=== PATIENT | male | born 1970 | race Hispanic/Latino ===

== ENCOUNTER 2018-06-14 09:18 | Inpatient (IN) | payer BC ==
[~2018-06-14] VITALS: Ht 175.3 cm; Wt 123.8 kg
[2018-06-14] MEDS ORDERED: MAGNESIUM/ALUMINUM/SIMETHICONE 30 ML UDC PO STA (09:44)
[2018-06-14] MEDS ORDERED: PANTOPRAZOLE 40 MG 10ML VIAL IV STA (10:15)
--- NOTE | 2018-06-14 11:27 | Diagnostic Imaging Report ---
EXAMINATION: CXR 2 VIEW - HOPD INDICATION: Epigastric pain. Chest pain. COMPARISON: None FINDINGS: TUBES and LINES: None. LUNGS: Lungs are well inflated. Perihilar peribronchial hazy opacity could be due to bronchitis. There is no evidence of consolidated pneumonia or pulmonary edema. PLEURA: No pleural effusion or pneumothorax. HEART AND MEDIASTINUM: The cardiomediastinal silhouette is unremarkable. BONES AND SOFT TISSUES: No acute osseous lesion. Soft tissues are unremarkable. UPPER ABDOMEN: No free air under the diaphragm. IMPRESSION: Perihilar peribronchial hazy opacity could be due to bronchitis. Signed by: Dr. Austin Ch M.D. on 06/14/2018 11:24 AM
--- NOTE | 2018-06-14 12:43 | Diagnostic Imaging Report ---
EXAM: CT Abdomen and Pelvis WITH contrast INDICATION: Epigastric pain. COMPARISON: None. TECHNIQUE: Abdomen and pelvis were scanned utilizing a multidetector helical scanner from the lung base to the pubic symphysis after administration of IV contrast. Coronal and sagittal reformations were obtained. Routine protocol was performed. Scan was performed when during portal venous phase. IV CONTRAST: 100 mL of Isovue-370 ORAL CONTRAST: Water RADIATION DOSE: Total DLP: 878.97 mGy*cm Estimated effective dose: (DLP x 0.015 x size factor) mSv COMPLICATIONS: None FINDINGS: LINES and TUBES: None. LOWER THORAX: Mild scarring/atelectasis at the lung bases. HEPATOBILIARY: Fatty infiltration of the liver. Focal hypervascular lesion in the posterior inferior right hepatic lobe best seen on series 2 image 35 and 36. No biliary ductal dilation. GALLBLADDER: No radio-opaque stones or sludge. No wall thickening. SPLEEN: No splenomegaly. Small splenule. PANCREAS: No focal masses or ductal dilatation. ADRENALS: No adrenal nodules KIDNEYS/URETERS: Kidneys enhance symmetrically. No hydronephrosis. No cystic or solid mass lesions. Punctate nonobstructing right and left renal stones. GI TRACT: No abnormal distention, wall thickening, or evidence of bowel obstruction. Appendix is normal. PELVIC ORGANS/BLADDER: Unremarkable. LYMPH NODES: 2.0 cm hypodense jose hepatis region lymph node best seen on series 2 image 35. Small nonspecific inguinal lymph nodes. VESSELS: Unremarkable. PERITONEUM / RETROPERITONEUM: No free air or fluid. BONES: Unremarkable. SOFT TISSUES: 4.0 cm spiculated mass in the mesenteric fat best seen on series 2 image 49 and could be due to a carcinoid tumor. There is apparent retraction of the adjacent mesenteric vasculature. There are several adjacent small lymph nodes. Fat-containing right internal hernia. IMPRESSION: 1. 4.0 cm spiculated mass in the mesenteric fat to be due to a carcinoid tumor. There are several adjacent small lymph nodes, there is a 2.0 cm jose hepatus region lymph node and there is a small hypervascular lesion in the posterior inferior right hepatic lobe. GI/surgical consultation is recommended. 2. Punctate nonobstructing right and left renal stones. Signed by: Dr. Austin Ch M.D. on 06/14/2018 12:40 PM
[2018-06-14] MEDS ORDERED: MORPHINE SULFATE INJ 4 MG/ML INJ IV STA (13:02)
[2018-06-14] MEDS ORDERED: HYDROMORPHONE 1MG/1ML INJ IV PRN (13:15)
[2018-06-14] MEDS ORDERED: PANTOPRAZOLE INJ 40 MG in SODIUM CHLORIDE 0.9% 50ML 50 ML IV SCH (13:15)
--- OUTSIDE RECORDS SUMMARY | 2018-06-14 13:34 | XMS REPORT ---
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 Allergies, Adverse Reactions, Alerts This patient has no known allergies or adverse reactions. Medications This patient has no known medications. Results Test Description Test Time Test Comments Text Results Atomic Results Result Comments CT ABD/PEL WITH CONTRAST-HOPD 2018-06-14 12:29:00 [facility] [address] [address] Patient Name: YASMIN NAVARRO MR #: [id number] : 1970 Age/Sex: 47/M Req #: [id number] Adm Physician: Ordered by: HAZEL FREY MD Report #: [id number] Location: [facility] Room/Bed: Procedure: [id number] HOPD/CT ABD/PEL WITH CONTRAST-HOPD Exam Date: 06/14/18 Exam Time: 1040 REPORT STATUS: Signed EXAM: CT Abdomen and Pelvis WITH contrast INDICATION: Epigastric pain. COMPARISON: None. TECHNIQUE: Abdomen and pelvis were scanned utilizing a multidetector helical scanner from the lung base to the pubic symphysis after administration of IV contrast. Coronal and sagittal reformations were obtained. Routine protocol was performed. Scan was performed when during portal venous phase. IV CONTRAST: 100 mL of Isovue-370 ORAL CONTRAST: Water RADIATION DOSE: Total DLP: 878.97 mGy*cm Estimated effective dose: (DLP x 0.015 x size factor) mSv COMPLICATIONS: None FINDINGS: LINES and TUBES: None. LOWER THORAX: Mild scarring/atelectasis at the lung bases. HEPATOBILIARY: Fatty infiltration of the liver. Focal hypervascular lesion in the posterior inferior right hepatic lobe best seen on series 2 image 35 and 36. No biliary ductal dilation. GALLBLADDER: No radio-opaque stones or sludge. No wall thickening. SPLEEN: No splenomegaly. Small splenule. PANCREAS: No focal masses or ductal dilatation. ADRENALS: No adrenal nodules KIDNEYS/URETERS: Kidneys enhance symmetrically. No hydronephrosis. No cystic or solid mass lesions. Punctate nonobstructing right and left renal stones. GI TRACT: No abnormal distention, wall thickening, or evidence of bowel obstruction. Appendix is normal. PELVIC ORGANS/BLADDER: Unremarkable. LYMPH NODES: 2.0 cm hypodense jose hepatis region lymph node best seen on series 2 image 35. Small nonspecific inguinal lymph nodes. VESSELS: Unremarkable. PERITONEUM / RETROPERITONEUM: No free air or fluid. BONES: Unremarkable. SOFT TISSUES: 4.0 cm spiculated mass in the mesenteric fat best seen on series 2 image 49 and could be due to a carcinoid tumor. There is apparent retraction of the adjacent mesenteric vasculature. There are several adjacent small lymph nodes. Fat-containing right internal hernia. IMPRESSION: 1. 4.0 cm spiculated mass in the mesenteric fat to be due to a carcinoid tumor. There are several adjacent small lymph nodes, there is a 2.0 cm jose hepatus region lymph node and there is a small hypervascular lesion in the posterior inferior right hepatic lobe. GI/surgical consultation is recommended. 2. Punctate nonobstructing right and left renal stones. Signed by: Dr. Austin Ch M.D. on 06/14/2018 12:40 PM Dictated By: AUSTIN CH MD, MD 1240 Transcribed By: ROSALIE on 06/14/18 1240 COPY TO: HAZEL FREY MD CXR 2 [facility] 2018-06-14 11:23:00 [address] [address] Patient Name: YASMIN NAVARRO MR #: [id number] : 1970 Age/Sex: 47/M [facility] #: [id number] [facility] Physician: Ordered by: HAZEL FREY MD Report #: [id number] Location: [facility] Room/Bed: Procedure: [id number] HOPD/CXR 2 VIEW - HOPD Exam Date: 06/14/18 Exam Time: 1040 REPORT STATUS: Signed EXAMINATION: CXR 2 VIEW - HOPD INDICATION: Epigastric pain. Chest pain. COMPARISON: None FINDINGS: TUBES and LINES: None. LUNGS: Lungs are well inflated. Perihilar peribronchial hazy opacity could be due to bronchitis. There is no evidence of consolidated pneumonia or pulmonary edema. PLEURA: No pleural effusion or pneumothorax. HEART AND MEDIASTINUM: The cardiomediastinal silhouette is unremarkable. BONES AND SOFT TISSUES: No acute osseous lesion. Soft tissues are unremarkable. UPPER ABDOMEN: No free air under the diaphragm. IMPRESSION: Perihilar peribronchial hazy opacity could be due to bronchitis. Signed by: Dr. Austin Ch M.D. on 06/14/2018 11:24 AM Dictated By: AUSTIN CH MD, MD 1124 Transcribed By: ROSALIE on 06/14/18 1124 COPY TO: HAZEL FREY MD
[2018-06-14] MEDS ORDERED: PANTOPRAZOLE 40 MG 10ML VIAL ONE (17:37)
[2018-06-14] MEDS ORDERED: LABETALOL HCL 5 MG/ML 20ML VIAL IV PRN (17:45)
[2018-06-14] MEDS: PANTOPRAZOL 40MG/SOD CHL 0.9% 50 ML IV SCH ×2 (17:45→22:24)
[2018-06-14] MEDS: D5.45%NS/KCL 20MEQ 1,000 ML IV SCH ×2 (17:45→21:05)
[2018-06-14] MEDS: HYDROMORPHONE 2MG/ML 2 MG/ML ML IV PRN ×2 (17:50→21:50)
[2018-06-14 18:43] VITALS: BP 175/98
[2018-06-14] MEDS ORDERED: IOPAMIDOL 300MG/ML 100 ML INFUS..BTL IV ONE (18:45)
[2018-06-14 20:00] VITALS: BP 136/75
[2018-06-15] VITALS (7 sets, daily range): BP systolic 99–147; BP diastolic 50–81
[2018-06-15] MEDS: HYDROMORPHONE 2MG/ML 2 MG/ML ML IV PRN ×6 (01:20→22:11)
[2018-06-15] MEDS: D5.45%NS/KCL 20MEQ 1,000 ML IV SCH (01:20)
[2018-06-15] MEDS: PANTOPRAZOL 40MG/SOD CHL 0.9% 50 ML IV SCH ×5 (03:15→22:11)
[2018-06-15 05:50] LABS: BASOPHILS % 0.3 % (0.0-1.0); EOSINOPHILS # (AUTO) 0.1 (0.0-0.4); EOSINOPHILS % 0.9 % (0.0-6.0); HEMOGLOBIN 13.9 g/dL (14.0-18.0); LYMPHOCYTES # (AUTO) 1.5 (1.0-3.2); LYMPHOCYTES % 16.6 % (18.0-39.1); MEAN CORPUSCULAR HEMOGLOBIN 28.2 pg (28-32); MEAN CORPUSCULAR HGB CONC 33.1 g/dL (31-35); MEAN CORPUSCULAR VOLUME 85.2 fL (81-99); MONOCYTES # (AUTO) 0.8 (0.2-0.8); MONOCYTES % 8.3 % (4.4-11.3); NEUTROPHILS # (AUTO) 6.6 (2.1-6.9); NEUTROPHILS % 73.7 % (38.7-80.0); PLATELET COUNT 339 x10e3/uL (140-360); RED BLOOD COUNT 4.93 x10e6/uL (4.3-5.7); RED CELL DISTRIBUTION WIDTH 12.4 % (11.7-14.4)
[2018-06-15 06:19] LABS: ALANINE AMINOTRANSFERASE 22 IU/L (0-55); ALBUMIN 3.6 g/dL (3.5-5.0); ALKALINE PHOSPHATASE 70 IU/L (40-150); AMYLASE 57 U/L (25-125); ANION GAP 14.9 mmol/L (8-16); BLOOD UREA NITROGEN 11 mg/dL (7-26); BUN/CREATININE RATIO 12 (6-25); CALCIUM 9.1 mg/dL (8.4-10.2); CARBON DIOXIDE 23 mmol/L (22-29); CHLORIDE 98 mmol/L (98-107); CREATININE, SERUM 0.89 mg/dL (0.72-1.25); EST GLOMERULAR FILTRATION RATE > 60 ML/MIN (60-); GLUCOSE 116 mg/dL (74-118); LIPASE 19 U/L (8-78); POTASSIUM 3.9 mmol/L (3.5-5.1); SODIUM 132 mmol/L (136-145)
[2018-06-15 07:01] LABS: CHOL/HDL RATIO 4.6 (3.9-4.7)
[2018-06-15] MEDS: ONDANSETRON HCL INJ 2 MG/ML VIAL IV PRN (07:10)
[2018-06-15 07:21] LABS: THYROID STIMULATING HORMONE 1.412 uIU/mL (0.350-4.940)
[2018-06-15] MEDS: SODIUM CHLORIDE 0.9% 1000ML 1,000 ML IV SCH (08:55)
--- NOTE | 2018-06-15 09:23 | History and Physical ---
PRIMARY CARE PHYSICIAN: None. CHIEF COMPLAINT: Epigastric pain. HISTORY OF PRESENT ILLNESS: This is a 47-year-old man with history of obesity, now developing epigastric pain. He says the pain has been ongoing for about 3 days. On further discussion, he has had intermittent pain from time to time in the past. The pain is described as 10/10, epigastric pain. He went to [facility] facility and was sent here for further management after imaging showed a mesenteric mass suggestive of a carcinoid tumor. The patient has also been having hot flashes and night sweats. He has had intermittent diarrhea. PAST MEDICAL HISTORY: Severe obesity. PAST SURGICAL HISTORY: Sinus related. ALLERGIES: PER ELECTRONIC MEDICAL RECORD. FAMILY HISTORY AND SOCIAL HISTORY: The patient is and has 3 children. Occasional alcohol. No cigarettes. 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 MEDICATIONS: Per electronic medical record. REVIEW OF SYSTEMS: Denies any dizziness. Denies any headache or vision changes. Denies any back pain, chest pain, shortness of breath. Denies any leg pain. PHYSICAL EXAMINATION VITAL SIGNS: Reviewed. GENERAL: A tired-appearing man resting in bed. HEENT: Anicteric. CARDIOVASCULAR: Normal S1 and S2. LUNGS: Moderate breath sounds. ABDOMEN: Soft, nondistended. Mild tenderness in the epigastrium. EXTREMITIES: No edema. SKIN: Dry. PSYCHIATRIC: Flat affect. NEUROLOGIC: Alert, oriented times 3, moving all extremities. LABS: Reviewed. MEDICATIONS: Reviewed. ASSESSMENT: A 47-year-old man. 1. Abdominal mass, possibly carcinoid tumor. 2. Abdominal lymphadenopathy. 3. Nephrolithiasis, bilateral. 4. Severe obesity. PLAN 1. GI consultation for endoscopy. 2. Oncology consultation. 3. Obtain hemoglobin A1c and lipid panel. 4. Obtain TSH. 5. Keep patient n.p.o. at this time. 6. Provide hydration. 7. Use SCDs for DVT prophylaxis. 8. Disposition: Follow up recommendations. Job#: [id number]
--- NOTE | 2018-06-15 22:17 | Consultation ---
DATE OF CONSULTATION: June 15, 2018 CHIEF COMPLAINT: Abdominal pain. HISTORY OF PRESENT ILLNESS: Patient is a 47-year-old male with 3-day history of epigastric abdominal pain radiating to the back with nausea. No vomiting. The patient was in relatively good health until this occurrence. He denied fever or chills but admitted to night sweats and intermittent diarrhea. PAST MEDICAL HISTORY: Positive for moderate obesity. SURGICAL HISTORY: Positive for sinus surgery. SOCIAL HABITS: Drinks socially. No smoking. DRUG ALLERGIES: NONE. REVIEW OF SYSTEMS: No chest pain or shortness of breath. PHYSICAL EXAMINATION VITALS: Stable. He is afebrile. GENERAL: Patient is awake, alert, in no apparent distress. HEENT: Sclerae anicteric. NECK: Supple. LUNGS: Clear. HEART: Regular rate and rhythm. ABDOMEN: Soft and nontender. No mass palpable. EXTREMITIES: Without cyanosis or edema. LABS: White cell count is 9, hemoglobin of 14, and platelet count 339,000. Creatinine 0.9. Glucose 221. Amylase 57. CT of the abdomen shows 4 cm spiculated mass in the mesenteric fat suggestive of carcinoid tumor. ASSESSMENT: Abdominal pain which is suspicious for carcinoid tumor in the mesenteric fat. PLAN: GI evaluation in progress. We will follow patient and plan surgical intervention accordingly. Job#: [id number]
[2018-06-16] VITALS (8 sets, daily range): BP systolic 115–137; BP diastolic 54–86
[2018-06-16] MEDS: HYDROMORPHONE 2MG/ML 2 MG/ML ML IV PRN ×6 (01:47→22:15)
[2018-06-16] MEDS: PANTOPRAZOL 40MG/SOD CHL 0.9% 50 ML IV SCH ×4 (03:15→23:55)
[2018-06-16] MEDS ORDERED: LIDOCAINE HCL 2% LOCAL 20 ML VIAL INJ ONE (08:00)
[2018-06-16] MEDS: SODIUM CHLORIDE 0.9% 1000ML 1,000 ML IV SCH (08:40)
--- NOTE | 2018-06-16 14:23 | Operative Report ---
DATE OF PROCEDURE: June 16, 2018 REFERRING PHYSICIAN: Dr. Sb Blandon. PROCEDURE PERFORMED: Esophagogastroduodenoscopy with biopsies. INDICATIONS FOR ESOPHAGOGASTRODUODENOSCOPY: Upper abdominal pain. MEDICATION: Patient was done under MAC. Please see anesthesiologist's note. PROCEDURE: With the patient in the left lateral decubitus position, the flexible fiberoptic Olympus gastroscope was introduced into the esophagus under direct visualization without any difficulty. There was some patchy erythema noted in the distal esophagus. Also, there were ?grade 1 esophageal varices versus prominent esophageal veins. The scope was then advanced with ease into the stomach, traversing a small sliding hiatal hernia. Mucosa overlying the antrum and the body revealed some diffuse erythema and moderate edema, and biopsies were obtained and sent to stain for H. pylori. The pylorus was of normal contour and shape, was intubated with ease, and the scope was advanced all the way to the 2nd portion of the duodenum. The scope was then withdrawn slowly. Mucosa overlying the proximal 2nd portion and the duodenal bulb appeared to be within normal limits. The scope was then withdrawn back into the stomach and retroflexed, and the mucosa overlying the fundus and the cardia appeared to be within normal limits. The scope was then straightened out. It was subsequently withdrawn. Patient tolerated procedure well. IMPRESSION: 1. Distal esophagitis. 2. ?Grade 1 esophageal varices. 3. Small sliding hiatal hernia. 4. Gastritis. PLAN: Follow up histology. Continue PPI therapy. Job#: [id number] EV cc:MD ISSAC CUELLO MD DAVID LAM, MD
[2018-06-16] MEDS ORDERED: MIDAZOLAM HCL 2 MG/2 ML VIAL ONE (15:25)
[2018-06-16] MEDS ORDERED: FENTANYL CITRATE/PF 100MCG/2 ML INJ ONE (15:25)
[2018-06-17] VITALS (7 sets, daily range): BP systolic 122–152; BP diastolic 61–80
[2018-06-17] MEDS: HYDROMORPHONE 2MG/ML 2 MG/ML ML IV PRN ×5 (02:28→20:56)
[2018-06-17] MEDS: PANTOPRAZOL 40MG/SOD CHL 0.9% 50 ML IV SCH ×4 (04:57→20:09)
--- NOTE | 2018-06-17 09:44 | Consultation ---
DATE OF CONSULTATION: June 15, 2018 Walter Glaser is a 47-year-old male who is referred to me for evaluation of an abdominal mass. The patient had presented with pain. SOCIAL HISTORY: Noncontributory. FAMILY HISTORY: Noncontributory. ALLERGIES: REPORTED NONE. MEDICATIONS: At this time: 1. Hydromorphone. 2. Trandate. 3. Zofran. 4. Normal saline. 5. Protonix. REVIEW OF SYSTEMS HEENT: Normal. CARDIAC: Normal. RESPIRATORY: Normal. GI: Abdominal pain. : Normal. MUSCULOSKELETAL: Normal. SKIN AND BREASTS: Normal. NEUROENDOCRINE: Essentially normal. PHYSICAL EXAMINATION GENERAL: A large-built male distressed with abdominal pain. Some times has flushing. HEART: Within normal limits. LUNGS: Clear. ABDOMEN: Soft. RECTAL: Deferred. CENTRAL NERVOUS SYSTEM: Essentially normal. EXTREMITIES: Essentially normal. LABS: Shows a hemoglobin of 13.9, hematocrit 42, white count 8900, and platelets are reported a 339,000. Chemistry shows a sodium of 132, potassium 3.9, chloride 98, CO2 23, BUN 11, creatinine 0.8, glucose 116. Calcium 9.1. Bilirubin 0.5, SGOT 16, SGPT 22, alkaline phosphatase 70. Total protein 7.1. Albumin 3.6. Globulins 3.5. Amylase and lipase are normal at 57 and 19. Triglycerides high at 221. IMAGING: Shows a chest x-ray that showed perihilar peribronchial opacity. Dr. Austin Ch suggested this could be bronchitis. However, the patient has no symptoms. CT scan of the abdomen showed mild scarring atelectasis of the lung bases. Fatty infiltration of the liver, focal hypervascular lesion in the posterior and inferior right hepatic lobe. There was a 4-cm mass in the mesenteric fat and a few regional lymph nodes especially in the jose hepatis, 2 cm. Punctate nonobstructing right and left renal stones. IMPRESSION: Abdominal mass with regional adenopathy. PLAN, COMMENTS AND SUGGESTIONS: Suggest surgical consultation for laparotomy since the radiologist has called it possible carcinoid. A 24-hour urine for 5-HIAA is suggested. A word of caution for Dr. Day, and this I have communicated with Dr. Sb Blandon. I will communicate with Dr. Day, who has been consulted as the surgeon, that at times if this proves to be carcinoid while handling, it could squeeze out serotonins, which could cause hypotension. However, hypotension should not be treated with the vasopressin as this will increase the production and release of more serotonins, which will cause more hypertension with Vasoxyl. This is not available at this time. This was the only drug which could have been used. Resuscitation with fluids at the time is suggested. I will communicate this with Dr. Day as I did not know which surgeon was consulted. Now, since I know, I will communicate with Dr. Day again. The final treatment will depend on what the pathology will come out to be. Job#: [id number] RI cc:MD EVELINA REED MD CLEVE O. JAMES, MD
[2018-06-17] MEDS ORDERED: PROPOFOL IV EMULSION 10 MG/ML 20 ML VIAL IV ONE (12:19)
[2018-06-17] MEDS: SODIUM CHLORIDE 0.9% 1000ML 1,000 ML IV SCH (12:20)
[2018-06-17] MEDS: OCTREOTIDE ACETATE 500 MCG in SODIUM CHLORIDE 0.9% 250ML 249 ML IV SCH (13:00)
[2018-06-17] MEDS: ONDANSETRON HCL INJ 2 MG/ML VIAL IV PRN (20:56)
[2018-06-18] VITALS: BP 134/63
[2018-06-18 01:14] VITALS: BP 125/70
[2018-06-18] MEDS: HYDROMORPHONE 2MG/ML 2 MG/ML ML IV PRN ×2 (01:15→09:30)
[2018-06-18] MEDS: ONDANSETRON HCL INJ 2 MG/ML VIAL IV PRN (01:15)
[2018-06-18] MEDS: OCTREOTIDE ACETATE 500 MCG in SODIUM CHLORIDE 0.9% 250ML 249 ML IV SCH (01:30)
[2018-06-18] MEDS: PANTOPRAZOL 40MG/SOD CHL 0.9% 50 ML IV SCH (01:45)
[2018-06-18 04:00] VITALS: BP 128/77
[2018-06-18 08:15] VITALS: BP 109/56
[2018-06-18] MEDS ORDERED: PANTOPRAZOLE SO40 MG PO (09:02)
[2018-06-18 09:30] VITALS: BP 109/56
== END 2018-06-18 11:10 | disposition home or self-care (01) | DRG 375 ==
LOC: FSED 09:18 → ERHOLD 13:08 → MED/SURG3 16:28
PROVIDERS: ADMIT Internal Medicine; ATTEND Internal Medicine
PROC: 0DB78ZX Excision of Stomach, Pylorus, Via Natural or Artificial Opening Endoscopic, Diagnostic (ICD-10-PCS; principal; 2018-06-16 13:01)
DX: C7B.04 Secondary carcinoid tumors of peritoneum (principal); C7A.00 Malignant carcinoid tumor of unspecified site; Z68.41 Body mass index [BMI] 40.0-44.9, adult; I85.10 Secondary esophageal varices without bleeding; E66.9 Obesity, unspecified; K20.9 Esophagitis, unspecified; K44.9 Diaphragmatic hernia without obstruction or gangrene; K70.0 Alcoholic fatty liver; K29.70 Gastritis, unspecified, without bleeding; R59.0 Localized enlarged lymph nodes; N20.0 Calculus of kidney
CPT/HCPCS: 36415; 43239; 71046; 74177; 80048; 80053; 80061; 80076; 80307; 81003; 82150; 82553; 83036; 83497; 83690; 84443; 84484; 85025; 85379; 85610; 88305; 88312; 93005; 99284; J1170; J2001; J2250; J2270; J2353; J2405; J7030; J7050; Q9967

== ENCOUNTER 2018-08-19 08:23 | Emergency (ER) | payer BC ==
[~2018-08-19] VITALS: Ht 175.3 cm; Wt 123.8 kg
[~2018-08-19 08:23] MED LIST: PANTOPRAZOLE SO40 MG PO
[2018-08-19] MEDS ORDERED: KETOROLAC TROMETHAMINE 30 MG/ML VIAL IV STA (08:42)
[2018-08-19] MEDS ORDERED: SODIUM CHLORIDE 0.9% 1000ML 1,000 ML IV SCH (08:45)
--- NOTE | 2018-08-19 09:33 | Diagnostic Imaging Report ---
EXAMINATION: CT of the abdomen and pelvis without contrast. TECHNIQUE: Spiral CT images of the abdomen and pelvis were performed from the lung bases to the lesser trochanters. No intravenous contrast was given per physician's request. Coronal and sagittal reformatted images were obtained. COMPARISON: CT abdomen and pelvis with contrast 06/14/2018 CLINICAL HISTORY:Epigastric pain since yesterday DISCUSSION: ABSENCE OF INTRAVENOUS CONTRAST DECREASES SENSITIVITY FOR DETECTION OF FOCAL LESIONS AND VASCULAR PATHOLOGY. ABDOMEN/PELVIS: LOWER THORAX: Unremarkable. HEPATOBILIARY: The liver is enlarged, measuring 17.3 cm in the right mid clavicular line. Normal contour. Diffuse severe fatty infiltration. A 1.1 cm oval-shaped rounded lesion in hepatic segment V has increased attenuation compared to the rest of the hepatic parenchyma and corresponds to the previously described hypervascular lesion (series 3, image 73). No intra or extrahepatic biliary ductal dilation. GALLBLADDER: No radio-opaque stones or sludge. No wall thickening. SPLEEN: No splenomegaly. PANCREAS: No focal masses or ductal dilatation. No peripancreatic fat stranding, inflammatory changes, free fluid or fluid collections.. ADRENALS: No adrenal nodules. KIDNEYS/URETERS: Mild right hydronephrosis and hydroureter. There is a 4 mm calculus in the bladder lumen just past the right UVJ (series 3, image 176). Punctate nonobstructing calculi in the right mid to inferior aspect (series 3, image 95). Punctate nonobstructing calculus in the left inferior pole (series 3, image 91). No other renal or ureteral calculi. No left hydronephrosis or obstruction. No renal contour abnormalities. PELVIC ORGANS/BLADDER: Bladder is decompressed. There is mild to moderate circumferential bladder wall thickening, which is greater than expected for underdistention. Prostate is unremarkable. PERITONEUM/RETROPERITONEUM: No free air or fluid. Stable 2.6 x 2.0 x 2.6 cm soft tissue density centered in the mesentery (series 3, image 112). LYMPH NODES: Stable mildly enlarged portacaval node (series 3, image 68) which measures 1.2 cm in short axis. Enlarged anterior caval node which measures 1.2 cm in short axis (series 3, image 75). No other intra-abdominal or retroperitoneal, pelvic or inguinal adenopathy. VESSELS: Unremarkable for noncontrast exam. GI TRACT: No bowel dilation or evidence of obstruction. No pericolonic inflammatory changes. Appendix is well identified and normal in caliber. BONES AND SOFT TISSUES: No aggressive lytic lesions. Mild degenerative disc changes in the lower thoracic and lumbosacral spine. Moderate fat-containing right inguinal hernia. IMPRESSION: 1. Exam limited by lack of intravenous contrast. 2. 4 mm calculus in the bladder lumen just past the right UVJ, likely recently passed. There is mild right hydronephrosis and hydroureter. No ureteral calculi are noted. 3. Bilateral nonobstructing calculi, as described. 4. Stable 2.6 cm soft tissue density centered in the mesentery, with some retraction of the adjacent vessels. Differential diagnosis includes small carcinoid tumor, desmoid tumor or conglomerate adenopathy. 5. A 1.1 cm oval-shaped rounded lesion in hepatic segment V probably represents nonfatty infiltrated hepatic parenchyma rather than a true hypervascular lesion. Further evaluation with contrast enhanced abdominal MRI with liver mass protocol is recommended. 6. Portacaval and anterior caval adenopathy. 7. Mild to moderate circumferential bladder wall thickening, greater than expected for underdistention. Correlate for cystitis. 8. Hepatomegaly with diffuse severe steatosis. Signed by: Dr. Brian Horn M.D. on 08/19/2018 9:29 AM
[2018-08-19] MEDS ORDERED: MORPHINE SULFATE 2 MG/ML SYR IV STA ×2 (10:03→10:38)
[2018-08-19] MEDS ORDERED: MORPHINE SULFATE INJ 4 MG/ML INJ IV NR (10:15)
[2018-08-19] MEDS ORDERED: FLOMAX0.4 MG PO (10:59)
[2018-08-19] MEDS ORDERED: KETOROLAC TROME10 MG PO (10:59)
[2018-08-19 11:17] VITALS: BP 143/95
== END 2018-08-19 11:17 | disposition home or self-care (01) ==
LOC: FSED 08:23
DX: R10.31 Right lower quadrant pain (principal); N20.1 Calculus of ureter; Z85.028 Personal history of other malignant neoplasm of stomach
CPT/HCPCS: 74176; 80048; 80076; 81003; 85025; 99284; J1885; J2270; J7030

== ENCOUNTER 2021-04-29 17:42 | Inpatient (IN) | payer BC, OTHER ==
[~2021-04-29] VITALS: Ht 175.3 cm; Wt 85.3 kg
[~2021-04-29 17:42] MED LIST changes: +FLOMAX0.4 MG PO; +KETOROLAC TROME10 MG PO
[2021-04-29 18:10] LABS: BASOPHILS % 0.3 % (0.0-1.0); EOSINOPHILS # (AUTO) 0.1 (0.0-0.4); EOSINOPHILS % 1.9 % (0.0-6.0); HEMOGLOBIN 12.2 g/dL (14.0-18.0); LYMPHOCYTES # (AUTO) 0.4 (1.0-3.2); LYMPHOCYTES % 10.6 % (18.0-39.1); MEAN CORPUSCULAR HEMOGLOBIN 30.4 pg (28-32); MEAN CORPUSCULAR HGB CONC 33.9 g/dL (31-35); MEAN CORPUSCULAR VOLUME 89.8 fL (81-99); MONOCYTES # (AUTO) 0.4 (0.2-0.8); MONOCYTES % 11.1 % (4.4-11.3); NEUTROPHILS # (AUTO) 2.7 (2.1-6.9); NEUTROPHILS % 75.8 % (38.7-80.0); PLATELET COUNT 259 x10e3/uL (140-360); RED BLOOD COUNT 4.01 x10e6/uL (4.3-5.7); RED CELL DISTRIBUTION WIDTH 13.5 % (11.7-14.4)
[2021-04-29 18:27] LABS: ALANINE AMINOTRANSFERASE 133 IU/L (0-55); ALBUMIN 2.8 g/dL (3.5-5.0); ALKALINE PHOSPHATASE 139 IU/L (40-150); ANION GAP 11.7 mmol/L (8-16); BLOOD UREA NITROGEN 15 mg/dL (7-26); BUN/CREATININE RATIO 18 (6-25); CALCIUM 7.5 mg/dL (8.4-10.2); CARBON DIOXIDE 19 mmol/L (22-29); CHLORIDE 115 mmol/L (98-107); CREATINE KINASE 198 IU/L (30-200); CREATININE, SERUM 0.85 mg/dL (0.72-1.25); EST GLOMERULAR FILTRATION RATE 95 ML/MIN (60-); GLUCOSE 160 mg/dL (74-118); POTASSIUM 3.7 mmol/L (3.5-5.1); SODIUM 142 mmol/L (136-145)
[2021-04-29 18:42] LABS: AMYLASE 66 U/L (25-125); LIPASE 16 U/L (8-78)
[2021-04-29] MEDS ORDERED: IOPAMIDOL 370 MG/ML 200 ML INFUS..BTL INJ ONE (19:41)
[2021-04-29] MEDS ORDERED: SODIUM CHLORIDE 0.9% 100 ML ONE (19:41)
[2021-04-29] MEDS ORDERED: ONDANSETRON HCL INJ 2MG/ML 2ML 2 MG/ML VIAL IV STA (20:08)
[2021-04-29] MEDS ORDERED: MORPHINE SULFATE INJ 4 MG/ML INJ 1ML IV STA (20:12)
[2021-04-29] MEDS ORDERED: HYDROMORPHONE 1MG/1ML INJ IV STA (21:55)
[2021-04-29] MEDS: METRONIDAZOLE 500MG/NS 100ML 100 ML IV SCH (22:26)
[2021-04-29] MEDS: CEFOXITIN 1GM/0.9% NS 50ML 50 ML IV SCH (22:26)
[2021-04-29] MEDS: SODIUM CHLORIDE 0.9% 1000ML 1,000 ML IV SCH (22:26)
[2021-04-29] MEDS ORDERED: AMLODIPINE BESYLATE 5 MG TAB PO ONE (23:45)
[2021-04-29] MEDS: SENNA-S TABLET PO SCH (23:45)
[2021-04-29] MEDS: TAMSULOSIN HCL 0.4 MG CAP PO SCH (23:45)
[2021-04-29] MEDS ORDERED: HYDRALAZINE HCL 20 MG/ML VIAL IV PRN (23:45)
[2021-04-30] MEDS: HYDROMORPHONE 1MG/1ML INJ IV PRN ×4 (01:15→22:20)
[2021-04-30] MEDS: METRONIDAZOLE 500MG/NS 100ML 100 ML IV SCH ×4 (04:00→21:21)
[2021-04-30] MEDS: CEFOXITIN 1GM/0.9% NS 50ML 50 ML IV SCH ×3 (06:00→21:22)
[2021-04-30 06:30] LABS: ALBUMIN 2.7 g/dL (3.5-5.0); ANION GAP 9.1 mmol/L (8-16); CALCIUM 7.6 mg/dL (8.4-10.2); CREATININE, SERUM 0.75 mg/dL (0.72-1.25); POTASSIUM 3.1 mmol/L (3.5-5.1)
[2021-04-30] MEDS: SODIUM CHLORIDE 0.9% 1000ML 1,000 ML IV SCH ×3 (07:43→21:22)
[2021-04-30] MEDS: AMLODIPINE BESYLATE 5 MG TAB PO SCH (09:00)
[2021-04-30] MEDS: SENNA-S TABLET PO SCH ×2 (09:00→16:32)
[2021-04-30] MEDS ORDERED: POTASSIUM CHLORIDE 10MEQ EA PO ONE (09:30)
[2021-04-30] MEDS: TAMSULOSIN HCL 0.4 MG CAP PO SCH ×2 (10:43→16:32)
[2021-04-30 13:30] VITALS: BP 104/68
[2021-04-30 13:31] VITALS: BP 104/68
[2021-04-30 13:32] VITALS: BP 104/68
[2021-04-30] MEDS: HYDROCODONE/APAP 10MG-325MG TAB PO PRN ×2 (15:12→21:16)
[2021-04-30 15:27] VITALS: BP 101/65
[2021-04-30 20:00] VITALS: BP 98/59
[2021-04-30 21:59] VITALS: BP 98/59
[2021-04-30] MEDS: ONDANSETRON HCL INJ 2MG/ML 2ML 2 MG/ML VIAL IV PRN (22:20)
[2021-05-01] VITALS (11 sets, daily range): BP systolic 98–110; BP diastolic 64–75
[2021-05-01] MEDS: HYDROMORPHONE 1MG/1ML INJ IV PRN ×4 (04:00→22:20)
[2021-05-01] MEDS: ONDANSETRON HCL INJ 2MG/ML 2ML 2 MG/ML VIAL IV PRN ×2 (04:00→22:20)
[2021-05-01] MEDS: METRONIDAZOLE 500MG/NS 100ML 100 ML IV SCH ×4 (04:00→22:00)
[2021-05-01 05:02] LABS: BASOPHILS % 0.5 % (0.0-1.0); EOSINOPHILS # (AUTO) 0.1 (0.0-0.4); EOSINOPHILS % 5.7 % (0.0-6.0); HEMATOCRIT 31.3 % (38.2-49.6); HEMOGLOBIN 10.3 g/dL (14.0-18.0); LYMPHOCYTES # (AUTO) 0.4 (1.0-3.2); LYMPHOCYTES % 21.1 % (18.0-39.1); MEAN CORPUSCULAR HEMOGLOBIN 30.6 pg (28-32); MEAN CORPUSCULAR HGB CONC 32.9 g/dL (31-35); MEAN CORPUSCULAR VOLUME 92.9 fL (81-99); MONOCYTES # (AUTO) 0.2 (0.2-0.8); MONOCYTES % 12.4 % (4.4-11.3); NEUTROPHILS # (AUTO) 1.2 (2.1-6.9); NEUTROPHILS % 60.3 % (38.7-80.0); PLATELET COUNT 220 x10e3/uL (140-360); RED BLOOD COUNT 3.37 x10e6/uL (4.3-5.7); RED CELL DISTRIBUTION WIDTH 13.6 % (11.7-14.4)
[2021-05-01] MEDS: CEFOXITIN 1GM/0.9% NS 50ML 50 ML IV SCH ×3 (05:11→21:01)
[2021-05-01] MEDS: SODIUM CHLORIDE 0.9% 1000ML 1,000 ML IV SCH (05:11)
[2021-05-01 05:23] LABS: ALBUMIN 2.3 g/dL (3.5-5.0); ANION GAP 9.3 mmol/L (8-16); CALCIUM 7.2 mg/dL (8.4-10.2); CREATININE, SERUM 0.71 mg/dL (0.72-1.25); POTASSIUM 3.3 mmol/L (3.5-5.1)
[2021-05-01 06:22] LABS: % IRON SATURATION 40 % (15-50); IRON 106 ug/dL (65-175); TOTAL IRON BINDING CAPACITY 266 ug/dL (261-478); TRANSFERRIN 190 mg/dL (174-364)
[2021-05-01] MEDS: SENNA-S TABLET PO SCH ×2 (08:14→16:05)
[2021-05-01] MEDS: AMLODIPINE BESYLATE 5 MG TAB PO SCH (08:14)
[2021-05-01] MEDS: TAMSULOSIN HCL 0.4 MG CAP PO SCH ×2 (08:22→16:09)
[2021-05-01] MEDS: KCL 40MEQ/0.9% SOD CHL 1,000 ML IV SCH ×2 (11:49→20:45)
[2021-05-01 14:43] LABS: WBC,FECAL (FECAL LACTOFERRIN) NEGATIVE (NEGATIVE)
[2021-05-02] VITALS: BP 95/61
[2021-05-02] MEDS ORDERED: ELIQUIS2.5 MG PO (02:17)
[2021-05-02] MEDS: HYDROMORPHONE 1MG/1ML INJ IV PRN ×2 (02:29→08:42)
[2021-05-02] MEDS: ONDANSETRON HCL INJ 2MG/ML 2ML 2 MG/ML VIAL IV PRN ×2 (02:29→08:33)
[2021-05-02] MEDS: APIXAB 2.5 MG TABLET PO SCH ×2 (02:30→08:33)
[2021-05-02] MEDS: KCL 40MEQ/0.9% SOD CHL 1,000 ML IV SCH (02:35)
[2021-05-02 04:00] VITALS: BP 109/66
[2021-05-02] MEDS: METRONIDAZOLE 500MG/NS 100ML 100 ML IV SCH ×2 (04:00→10:31)
[2021-05-02 05:05] LABS: BASOPHILS % 0.4 % (0.0-1.0); EOSINOPHILS # (AUTO) 0.1 (0.0-0.4); EOSINOPHILS % 3.8 % (0.0-6.0); HEMATOCRIT 29.6 % (38.2-49.6); HEMOGLOBIN 9.8 g/dL (14.0-18.0); LYMPHOCYTES # (AUTO) 0.4 (1.0-3.2); LYMPHOCYTES % 15.6 % (18.0-39.1); MEAN CORPUSCULAR HEMOGLOBIN 30.9 pg (28-32); MEAN CORPUSCULAR HGB CONC 33.1 g/dL (31-35); MEAN CORPUSCULAR VOLUME 93.4 fL (81-99); MONOCYTES # (AUTO) 0.3 (0.2-0.8); MONOCYTES % 11.4 % (4.4-11.3); NEUTROPHILS # (AUTO) 1.8 (2.1-6.9); NEUTROPHILS % 68.8 % (38.7-80.0); PLATELET COUNT 200 x10e3/uL (140-360); RED BLOOD COUNT 3.17 x10e6/uL (4.3-5.7); RED CELL DISTRIBUTION WIDTH 13.3 % (11.7-14.4)
[2021-05-02 05:09] LABS: C DIFFICILE TOXIN A&B AMP PROB NEGATIVE (NEGATIVE)
[2021-05-02] MEDS: CEFOXITIN 1GM/0.9% NS 50ML 50 ML IV SCH (05:11)
[2021-05-02 05:20] LABS: MAGNESIUM 1.8 MG/DL (1.3-2.1)
[2021-05-02 06:07] LABS: ANION GAP 6.3 mmol/L (8-16); CALCIUM 7.3 mg/dL (8.4-10.2); CREATININE, SERUM 0.71 mg/dL (0.72-1.25); POTASSIUM 3.3 mmol/L (3.5-5.1)
[2021-05-02 07:50] VITALS: BP 110/74
[2021-05-02] MEDS: TAMSULOSIN HCL 0.4 MG CAP PO SCH (08:33)
[2021-05-02] MEDS: AMLODIPINE BESYLATE 5 MG TAB PO SCH (08:33)
[2021-05-02] MEDS: SENNA-S TABLET PO SCH (08:33)
[2021-05-02] MEDS ORDERED: CYANOCOBALAMIN INJ 1,000 MCG/ML VIAL IM SCH (09:00)
[2021-05-02 09:53] VITALS: BP 110/74
[2021-05-02] MEDS ORDERED: POTASSIUM CHLORIDE 10MEQ EA PO ONE (10:00)
[2021-05-02 11:42] VITALS: BP 103/70
== END 2021-05-02 11:28 | disposition home or self-care (01) | DRG 644 ==
LOC: ER 17:51 → ERHOLD 22:06 → MED/SURG3 04-30 12:44
PROVIDERS: ADMIT Internal Medicine; ATTEND Internal Medicine
DX: E34.0 Carcinoid syndrome (principal); C7A.092 Malignant carcinoid tumor of the stomach; C7B.03 Secondary carcinoid tumors of bone; E86.0 Dehydration; K52.9 Noninfective gastroenteritis and colitis, unspecified; E53.8 Deficiency of other specified B group vitamins; Z20.822 Contact with and (suspected) exposure to COVID-19; E87.8 Other disorders of electrolyte and fluid balance, not elsewhere classified
CPT/HCPCS: 36415; 74174; 80048; 80053; 82150; 82550; 82553; 82607; 82746; 83540; 83630; 83690; 83735; 83993; 84100; 84466; 84484; 85025; 85045; 87045; 87177; 87493; 93005; 99284; J1170; J2270; J2405; J3420; J7030; J7050; Q9967; U0002

== ENCOUNTER 2021-09-08 21:29 | Emergency (ER) | payer OTHER ==
[~2021-09-08] VITALS: Ht 327.7 cm; Wt 85.3 kg
[~2021-09-08 21:29] MED LIST changes: +ELIQUIS2.5 MG PO
[2021-09-08 22:33] LABS: BASOPHILS % 0.5 % (0.0-1.0); EOSINOPHILS # (AUTO) 0.1 (0.0-0.4); EOSINOPHILS % 1.2 % (0.0-6.0); HEMATOCRIT 40.3 % (38.2-49.6); HEMOGLOBIN 12.8 g/dL (14.0-18.0); LYMPHOCYTES # (AUTO) 0.5 (1.0-3.2); LYMPHOCYTES % 8.3 % (18.0-39.1); MEAN CORPUSCULAR HEMOGLOBIN 30.7 pg (28-32); MEAN CORPUSCULAR HGB CONC 31.8 g/dL (31-35); MEAN CORPUSCULAR VOLUME 96.6 fL (81-99); MONOCYTES # (AUTO) 0.4 (0.2-0.8); MONOCYTES % 6.6 % (4.4-11.3); NEUTROPHILS # (AUTO) 5.4 (2.1-6.9); NEUTROPHILS % 83.1 % (38.7-80.0); PLATELET COUNT 343 x10e3/uL (140-360); RED BLOOD COUNT 4.17 x10e6/uL (4.3-5.7); RED CELL DISTRIBUTION WIDTH 12.9 % (11.7-14.4)
[2021-09-08 22:48] LABS: ALBUMIN/GLOBULIN RATIO 0.8 (0.8-2.0); ANION GAP 11.9 mmol/L (8-16); CALCIUM 8.6 mg/dL (8.4-10.2); POTASSIUM 3.9 mmol/L (3.5-5.1)
[2021-09-08 22:54] LABS: AMYLASE 66 U/L (25-125); LIPASE 11 U/L (8-78)
[2021-09-08] MEDS ORDERED: KETOROLAC TROMETHAMINE 30 MG/ML VIAL IV STA (23:11)
[2021-09-08 23:20] LABS: CLARITY,URINE SL CLOUDY (CLEAR); COLOR,URINE STRAW (YELLOW); KETONES,URINE TRACE (NEGATIVE); LEUKOCYTE ESTERASE ,URINE NEGATIVE (NEGATIVE); NITRITE,URINE NEGATIVE (NEGATIVE); PROTEIN,URINE DIPSTICK NEGATIVE (NEGATIVE); URINE UROBILINOGEN 0.2 mg/dL (0.2 - 1)
[2021-09-08] MEDS ORDERED: SODIUM CHLORIDE 0.9% 50ML 50 ML ONE (23:27)
[2021-09-08] MEDS ORDERED: IOPAMIDOL 370 MG/ML 200 ML INFUS..BTL INJ ONE (23:27)
[2021-09-08 23:48] LABS: BACTERIA,URINE RARE /HPF; EPITHELIAL CELLS,URINE FEW /LPF; MUCUS,URINE FEW (RARE); RBC,URINE 0-5 /HPF (0-5)
[2021-09-09] MEDS ORDERED: ONDANSETRON HCL INJ 2MG/ML 2ML 2 MG/ML VIAL IV STA (00:32)
[2021-09-09] MEDS ORDERED: Morphine 4mg Syringe 4 MG/ML INJ IV ONE (00:45)
[2021-09-09 02:55] VITALS: BP 131/85
== END 2021-09-09 02:57 | disposition home or self-care (01) ==
LOC: ER 22:02
DX: R10.11 Right upper quadrant pain (principal); Z85.028 Personal history of other malignant neoplasm of stomach
CPT/HCPCS: 36415; 74177; 76705; 80053; 81001; 82150; 83690; 85025; 99284; J1885; J2270; J2405; Q9967

== ENCOUNTER 2022-10-03 16:32 | Inpatient (IN) | payer MEDICARE, OTHER ==
[~2022-10-03] VITALS: Ht 175.3 cm; Wt 92.5 kg
[2022-10-03] MEDS ORDERED: KETOROLAC TROMETHAMINE 30 MG/ML VIAL ONE (16:51)
[2022-10-03] MEDS ORDERED: ONDANSETRON HCL INJ 2MG/ML 2ML 2 MG/ML VIAL ONE (16:51)
[2022-10-03] MEDS ORDERED: SODIUM CHLORIDE 0.9% 1000ML 1,000 ML ONE (16:51)
[2022-10-03] MEDS ORDERED: FAMOTIDINE 20 MG/2 ML VIAL IV ONE (16:51)
[2022-10-03] MEDS ORDERED: Morphine 4mg INJECTION 4 MG/ML INJ IV ONE (17:00)
[2022-10-03] MEDS ORDERED: Morphine 4mg INJECTION 4 MG/ML INJ ONE (17:04)
[2022-10-03] MEDS ORDERED: FAMOTIDINE 20 MG/2 ML VIAL IV STA (17:05)
[2022-10-03] MEDS ORDERED: ONDANSETRON HCL INJ 2MG/ML 2ML 2 MG/ML VIAL IV STA (17:05)
[2022-10-03] MEDS ORDERED: SODIUM CHLORIDE 0.9% 1000ML 1,000 ML IV ONE (17:15)
[2022-10-03] MEDS ORDERED: KETOROLAC TROMETHAMINE 30 MG/ML VIAL IV STA (18:09)
[2022-10-03] MEDS ORDERED: SODIUM CHLORIDE 0.9% 100 ML ONE (18:55)
[2022-10-03] MEDS ORDERED: CEFTRIAXONE 1 GM VIAL ONE (18:56)
[2022-10-03 20:30] VITALS: BP 125/80
[2022-10-03] MEDS: TAMSULOSIN HCL 0.4 MG CAP PO SCH ×2 (20:30→20:35)
[2022-10-03] MEDS: SODIUM CHLORIDE 0.9% 1000ML 1,000 ML IV SCH (20:30)
[2022-10-03] MEDS: ONDANSETRON HCL INJ 2MG/ML 2ML 2 MG/ML VIAL IV PRN (20:34)
[2022-10-03] MEDS: Morphine 4mg INJECTION 4 MG/ML INJ IV PRN (20:35)
[2022-10-04] MEDS ORDERED: KETOROLAC TROMETHAMINE 30 MG/ML VIAL IV STA (00:08)
[2022-10-04] MEDS: Morphine 4mg INJECTION 4 MG/ML INJ IV PRN ×5 (00:31→21:14)
[2022-10-04 04:00] VITALS: BP 125/85
[2022-10-04] MEDS: ONDANSETRON HCL INJ 2MG/ML 2ML 2 MG/ML VIAL IV PRN ×4 (04:48→21:13)
[2022-10-04] MEDS: SODIUM CHLORIDE 0.9% 1000ML 1,000 ML IV SCH ×3 (04:49→17:12)
[2022-10-04] MEDS ORDERED: HYDROCODON-ACE1 EAC9 PO (06:13)
[2022-10-04 07:47] LABS: BASOPHILS % 0.2 % (0.0-1.0); EOSINOPHILS # (AUTO) 0.1 (0.0-0.4); EOSINOPHILS % 2.2 % (0.0-6.0); HEMOGLOBIN 11.8 g/dL (14.0-18.0); LYMPHOCYTES # (AUTO) 0.5 (1.0-3.2); MEAN CORPUSCULAR HEMOGLOBIN 30.6 pg (28-32); MEAN CORPUSCULAR HGB CONC 32.8 g/dL (31-35); MEAN CORPUSCULAR VOLUME 93.3 fL (81-99); MONOCYTES # (AUTO) 0.4 (0.2-0.8); MONOCYTES % 9.1 % (4.4-11.3); NEUTROPHILS # (AUTO) 3.6 (2.1-6.9); NEUTROPHILS % 78.3 % (38.7-80.0); PLATELET COUNT 228 x10e3/uL (140-360); RED BLOOD COUNT 3.86 x10e6/uL (4.3-5.7)
[2022-10-04 07:55] VITALS: BP 129/87
[2022-10-04 07:56] VITALS: BP 129/87
[2022-10-04 08:13] LABS: ALBUMIN 2.6 g/dL (3.5-5.0); ALBUMIN/GLOBULIN RATIO 0.9 (0.8-2.0); ANION GAP 9.7 mmol/L (8-16); CALCIUM 7.9 mg/dL (8.4-10.2); CREATININE, SERUM 0.78 mg/dL (0.72-1.25); POTASSIUM 3.7 mmol/L (3.5-5.1)
[2022-10-04] MEDS ORDERED: PHENAZOPYRIDINE HCL 100 MG TAB PO PRN (09:30)
[2022-10-04 11:44] VITALS: BP 119/78
[2022-10-04] MEDS ORDERED: METOCLOPRAMIDE HCL 10 MG/2ML VIAL ONE (12:26)
[2022-10-04] MEDS ORDERED: ONDANSETRON HCL INJ 2MG/ML 2ML 2 MG/ML VIAL ONE (12:26)
[2022-10-04] MEDS ORDERED: PROPOFOL IV EMULSION 10 MG/ML 20 ML VIAL ONE (12:26)
[2022-10-04] MEDS ORDERED: DEXAMETHASONE SOD PHOS INJ 4 MG/ML SDV ONE (12:26)
[2022-10-04] MEDS ORDERED: POVIDONE IODINE 0.05% 0.05 % ML PO ONE (12:26)
[2022-10-04] MEDS ORDERED: KETOROLAC TROMETHAMINE 30 MG/ML VIAL ONE (12:26)
[2022-10-04] MEDS ORDERED: LIDOCAINE HCL 2% LOCAL INJ 5 ML SDV VIAL INJ ONE (12:26)
[2022-10-04] MEDS ORDERED: FENTANYL CITRATE/PF 100MCG/2 ML INJ ONE (12:33)
[2022-10-04] MEDS ORDERED: MIDAZOLAM HCL 2 MG/2 ML VIAL ONE (12:33)
[2022-10-04 15:52] VITALS: BP 124/84
[2022-10-04] MEDS: ACETAMINOPHEN/CODEINE 300MG - 30MG TAB PO PRN (17:12)
[2022-10-04 20:00] VITALS: BP_SYST 126; BP_SYST 130; BP_DIAS 77; BP_DIAS 87
[2022-10-04] MEDS: TAMSULOSIN HCL 0.4 MG CAP PO SCH (20:45)
[2022-10-05] MEDS: ACETAMINOPHEN/CODEINE 300MG - 30MG TAB PO PRN ×2 (00:47→05:57)
[2022-10-05] MEDS: SODIUM CHLORIDE 0.9% 1000ML 1,000 ML IV SCH ×3 (00:47→17:56)
[2022-10-05] MEDS: Morphine 4mg INJECTION 4 MG/ML INJ IV PRN ×4 (02:30→16:32)
[2022-10-05 04:00] VITALS: BP 121/87
[2022-10-05 06:38] LABS: BASOPHILS % 0.2 % (0.0-1.0); EOSINOPHILS % 0.6 % (0.0-6.0); HEMATOCRIT 38.2 % (38.2-49.6); HEMOGLOBIN 12.3 g/dL (14.0-18.0); LYMPHOCYTES # (AUTO) 0.6 (1.0-3.2); LYMPHOCYTES % 10.3 % (18.0-39.1); MEAN CORPUSCULAR HEMOGLOBIN 30.3 pg (28-32); MEAN CORPUSCULAR HGB CONC 32.2 g/dL (31-35); MEAN CORPUSCULAR VOLUME 94.1 fL (81-99); MONOCYTES # (AUTO) 0.4 (0.2-0.8); MONOCYTES % 7.9 % (4.4-11.3); NEUTROPHILS # (AUTO) 4.3 (2.1-6.9); NEUTROPHILS % 80.8 % (38.7-80.0); PLATELET COUNT 238 x10e3/uL (140-360); RED BLOOD COUNT 4.06 x10e6/uL (4.3-5.7); RED CELL DISTRIBUTION WIDTH 12.9 % (11.7-14.4)
[2022-10-05 06:58] LABS: CALCIUM 8.1 mg/dL (8.4-10.2); CREATININE, SERUM 0.75 mg/dL (0.72-1.25)
[2022-10-05 07:53] VITALS: BP 123/85
[2022-10-05] MEDS: ONDANSETRON HCL INJ 2MG/ML 2ML 2 MG/ML VIAL IV PRN ×3 (08:11→16:32)
[2022-10-05 08:14] VITALS: BP 123/85
[2022-10-05 11:39] VITALS: BP 126/94
[2022-10-05 16:13] VITALS: BP 140/82
[2022-10-05] MEDS ORDERED: HYDROMORPHONE 2MG/ML 2 MG/ML ML IV STA (17:43)
== END 2022-10-05 18:19 | disposition home or self-care (01) | DRG 694 ==
LOC: FSED 16:46 → OBSVTOIN 18:35 → INTOOBSV 18:35 → ERHOLD 18:35 → MED/SURG2 19:57 → OBSVTOIN 10-05 16:53
PROVIDERS: ADMIT Family Medicine; ATTEND Family Medicine
PROC: 0TC68ZZ Extirpation of Matter from Right Ureter, Via Natural or Artificial Opening Endoscopic (ICD-10-PCS; 2022-10-04)
PROC: 0T788ZZ Dilation of Bilateral Ureters, Via Natural or Artificial Opening Endoscopic (ICD-10-PCS; 2022-10-04)
PROC: BT141ZZ Fluoroscopy of Kidneys, Ureters and Bladder using Low Osmolar Contrast (ICD-10-PCS; principal; 2022-10-04 08:38)
DX: N13.2 Hydronephrosis with renal and ureteral calculous obstruction (principal); C7A.092 Malignant carcinoid tumor of the stomach; R18.8 Other ascites; E44.1 Mild protein-calorie malnutrition; N40.0 Benign prostatic hyperplasia without lower urinary tract symptoms; G89.4 Chronic pain syndrome; Z95.820 Peripheral vascular angioplasty status with implants and grafts; E83.51 Hypocalcemia; D64.9 Anemia, unspecified; R31.29 Other microscopic hematuria; Z68.30 Body mass index [BMI] 30.0-30.9, adult; E88.09 Other disorders of plasma-protein metabolism, not elsewhere classified; G89.3 Neoplasm related pain (acute) (chronic)
CPT/HCPCS: 36415; 74176; 74420; 80048; 80053; 81003; 83970; 84550; 85025; 88300; 96374; 96375; 96376; 99284; C1758; G0378; J0696; J1100; J1885; J2001; J2250; J2270; J2405; J2765; J3010; J7030; J7050